=== PATIENT | male | born 1960 | race Caucasian/White ===

== ENCOUNTER 2019-08-17 08:12 | Outpatient (CLI) | payer BC, SELFPAY ==
--- NOTE | ~2019-08-17 | XR_ITS ---
XR shoulder LT min 2V 08/17/2019 08:28 Indication: Left shoulder pain Procedure: 4 views left shoulder Comparison: No prior studies for comparison. Findings: There is osteoarthritis of the acromioclavicular and glenohumeral joints. There are calcifi cations adjacent to the humeral head, likely calcific tendinopathy. No acute fracture or traumatic ma lalignment. No foreign bodies. Visualized lung parenchyma is unremarkable. Impression: 1: Moderate polyarticular osteoarthritis. Reviewed, dictated and finalized at location A. Impression: 1: Moderate polyarticular osteoarthritis.
== END 2019-08-17 08:13 | disposition home or self-care (01) ==
PROVIDERS: PCP Family Medicine; Visit Provider Physician Assistant
DX: S49.92XA Unspecified injury of left shoulder and upper arm, initial encounter (principal); M19.012 Primary osteoarthritis, left shoulder
CPT/HCPCS: 73030

== ENCOUNTER → 2019-08-20 14:31 | Outpatient (CLI) | payer BC, SELFPAY ==
--- NOTE | ~2019-08-20 | MR_ITS ---
EXAMINATION: MR shoulder LT wo con DATE: 08/20/2019 15:13 INDICATION: Left shoulder and upper arm injury presenting with pain and limited range of motion. TECHNIQUE: Magnetic resonance imaging (MRI) of the left shoulder was performed without intravenous co ntrast. Sequences included axial PD-weighted FS FSE, coronal oblique PD-weighted FS FSE, coronal obli que T2-weighted FS FSE, sagittal PD-weighted FS FSE, and sagittal T1-weighted SE. COMPARISON: None. FINDINGS: Coracoacromial arch: The acromion undersurface is flat in morphology (type I). Small anterior subacromial spur at the inse rtion of the normal coracoacromial ligament. Moderate acromioclavicular osteoarthritis inferiorly dir ected osteophytes. Rotator cuff: Complete full-thickness tear of the supraspinatus and infraspinatus tendons along the superior and mi ddle facet footplates. The tear margin is retracted 3 cm medial from the footplate. There is moderate tendinopathy extending up to 2 cm further medially from the tear margin. The teres minor tendon is n ormal. Moderate subscapularis tendinopathy without discrete tear. 10 x 4 x 5 mm globular region of lo w signal in the distal subscapularis tendon consistent with calcific tendinitis. Mild muscular edema in the distal supraspinatus and subscapularis muscle bellies without associated fatty atrophy consist ent with relatively recent rotator cuff tendon tears. Biceps tendon, glenoid labrum and glenohumeral cartilage: Mild tendinopathy and longitudinal split tearing of the intra-articular long head biceps tendon. Ryan phous increased signal of the posterior superior glenoid labrum consistent with degenerative tearing. Mild partial thickness cartilage thinning with smooth chondral surface at the cephalad third of the glenoid. Cartilage thinning with chondral surface irregularity but without degenerative subarticular changes at the apex of the humeral head. Fluid: Small glenohumeral joint effusion with proportional extension of fluid into the long head biceps tend on sheath and posterior, axillary and deep subscapular recesses.No loose osteochondral bodies. The gl enohumeral joint effusion also communicates through the full-thickness rotator cuff tear with a small amount of fluid in the subacromial/subdeltoid bursa. Bones: Normal marrow signal with no edema, fracture or pathologic marrow replacing process. IMPRESSION: 1. Large full-thickness tear involving the entire greater tuberosity insertion of the supraspinatus a nd infraspinatus tendons which is likely relatively recent given the absence of significant associate d muscular fatty atrophy. 2. Subscapularis calcific tendinitis with moderate tendinopathy but without discrete tear. 3. Mild tendinopathy and longitudinal split tearing of the intra-articular long head biceps tendon. 4. Mild glenohumeral osteoarthritis with posterior superior labral degeneration. 5. Moderate acromioclavicular osteoarthritis. Reviewed, dictated and finalized at location A. IMPRESSION: 1. Large full-thickness tear involving the entire greater tuberosity insertion of the supraspinatus and infraspinatus tendons which is likely relatively recen t given the absence of significant associated muscular fatty atrophy. 2. Subscapularis calcific tendinitis with moderate tendinopathy but without dis crete tear. 3. Mild tendinopathy and longitudinal split tearing of the intra-articular long head biceps tendon. 4. Mild glenohumeral osteoarthritis with posterior superior labral degeneration . 5. Moderate acromioclavicular osteoarthritis.
== END ==
PROVIDERS: PCP Family Medicine; Visit Provider Physician Assistant
DX: S46.012A Strain of muscle(s) and tendon(s) of the rotator cuff of left shoulder, initial encounter (principal); X58.XXXA Exposure to other specified factors, initial encounter; M19.012 Primary osteoarthritis, left shoulder
CPT/HCPCS: 73221

== ENCOUNTER 2019-09-18 13:03 | Outpatient (CLI) | payer BC, SELFPAY ==
--- NOTE | 2019-09-18 13:04 | ECG_ITS ---
Measurements Intervals [place] Rate: 58 P: 46 AK: 206 QRS: 46 QRSD: 144 T: 9 QT: 434 QTc: 429 Interpretive Statements SINUS BRADYCARDIA WITH FIRST DEGREE AV BLOCK RIGHT BUNDLE BRANCH BLOCK MINIMAL Q WAVES- INFERIOR LEADS ABNORMAL ECG Electronically Signed On 09-18-2019 14:31:12 CDT by Lamont Morrison D.O.
[2019-09-18 13:48] LABS: Anion Gap 10.8 mmol/L (7-16); Blood Urea Nitrogen 17 mg/dL (9-20); Calcium 9.4 mg/dL (8.4-10.2); Carbon Dioxide 30 mmol/L (22-30); Chloride 98 mmol/L (98-107); Estimated Glomerular Filt Rate > 60; Glucose 93 mg/dL (75-110); Potassium 3.8 mmol/L (3.4-5.0); Sodium 135 mmol/L (137-145)
== END 2019-09-18 13:04 | disposition home or self-care (01) ==
PROVIDERS: Anesthesiology; PCP Family Medicine; Visit Provider Orthopaedic Surgery
DX: I10 Essential (primary) hypertension (principal); R00.1 Bradycardia, unspecified; I44.0 Atrioventricular block, first degree
CPT/HCPCS: 36415; 80048; 80053; 80061; 93005

== ENCOUNTER 2019-09-18 13:13 | Outpatient (CLI) | payer BC, SELFPAY ==
[2019-09-18 13:47] LABS: Alanine Aminotransferase 20 U/L (4-50); Albumin Level 4.4 g/dL (3.5-5.1); Alkaline Phosphatase 114 U/L (38-126); Anion Gap 11.8 mmol/L (7-16); Aspartate Amino Transferase 25 U/L (17-59); Bilirubin,Total 0.7 mg/dL (0.2-1.3); Blood Urea Nitrogen 16 mg/dL (9-20); Calcium 9.4 mg/dL (8.4-10.2); Carbon Dioxide 30 mmol/L (22-30); Chloride 98 mmol/L (98-107); Cholesterol 223 mg/dL (0-200); Estimated Glomerular Filt Rate > 60; Glucose 94 mg/dL (75-110); HDL Direct 38 mg/dL; Potassium 3.8 mmol/L (3.4-5.0); Sodium 136 mmol/L (137-145); Triglycerides 210 mg/dL (<150)
[2019-09-18 13:58] LABS: LDL Cholesterol Direct 150 mg/dL
== END 2019-09-18 13:14 | disposition home or self-care (01) ==
LOC: ANHLAB 13:14
PROVIDERS: PCP Family Medicine; Visit Provider Family Medicine
DX: I10 Essential (primary) hypertension (principal); E78.1 Pure hyperglyceridemia; Z79.899 Other long term (current) drug therapy
CPT/HCPCS: 36415; 80053; 80061

== ENCOUNTER 2019-09-21 01:49 | Outpatient (CLI) | payer BC, SELFPAY ==
[2019-09-23 01:34] LABS: SARS-CoV-2 RNA PCR Negative
== END 2019-09-21 01:50 | disposition home or self-care (01) ==
LOC: ANHCOVIDDT 01:49
PROVIDERS: PCP Family Medicine; Visit Provider Orthopaedic Surgery
DX: Z01.812 Encounter for preprocedural laboratory examination (principal); Z11.59 Encounter for screening for other viral diseases
CPT/HCPCS: 87635; C9803; U0003

== ENCOUNTER 2019-09-24 00:46 | Day surgery (SDC) | payer BC, SELFPAY ==
[2019-09-10 16:50] VITALS: BMI 33.5
[2019-09-24] VITALS (8 sets, daily range): BP systolic 103–152; BP diastolic 57–84; PULSE 59–78; RESP 12–18; TEMP 36.2–36.5; O2SAT 97–100
[2019-09-24] MEDS: LACTATED RINGERS 1,000 ML 30 ML IV CONT ×2 (08:55→14:02)
[2019-09-24] MEDS: KETOROLAC 15 MG/ML VIAL (*BKC) IV PUSH (09:05)
[2019-09-24] MEDS: ACETAMINOPHEN 500 MG TABLET 1000 MG PO (09:05)
--- NOTE | 2019-09-24 09:22 | WPDANESEPPF ---
Anes - Initial Pre Proc Eval Procedure: Operation Date: 09/24/19 10:30 Proposed Procedures p Left Arthroscopic Rotator Cuff Repair With Subacromial Decompression - Truman Rousseau MD Date/Time: 09/24/19 09:22 Surgeon: Truman Rousseau MD Pre Op Diagnosis: left rotator cuff tear Patient Data Age: 59 Gender: M Height: 1.8 m Weight: 109.09 kg Allergies Allergy/AdvReac Type Severity Reaction Status Date / Time erythromycin base Allergy Unknown Nausea Verified 09/24/19 09:27 Home Medications Medication Instructions Recorded Confirmed Type naproxen 500 mg tablet 500 mg PO BID #180 tablet 05/30/19 08/21/19 Rx lisinopril 20 1 tablet PO DAILY #90 tablet 08/09/19 08/21/19 Rx mg-hydrochlorothiazide 25 mg tablet [id number]-[id number]-kodq-FA-vit K tablet PO 09/10/19 History [Adults Multivitamin] omega 8-rqa-vhb-fish oil [Fish Oil] cap PO 09/10/19 History Patient hx anesthesia problems: none Family hx anesthesia problems: none PMFSH Social History Social History Smoking status: Never smoker Smokeless tobacco user: chewing tobacco Second hand tobacco smoke exposure: Yes Smoking end date: 02/28/99 Alcohol intake: current Drinks per week: 10 Substance use: never Living arrangements: with family Spiritual care concerns: No Anes - Eval Final PreProcedure Day of Procedure 09/24/19 09:22 Patient weight: obese Heart: regular rate and rhythm Lungs: clear to auscultation and normal air movement Airway: Mallampati scale class II Neurological: alert and oriented Last oral intake: >/= 8 hours ASA classification: III Emergent: no Anesthetic plan: proceed Anesthesia type and monitoring: general ETT and standard monitoring Informed Consent: The patient's anesthetic plan and its attendant risks and benefits were discussed with the patient/family/POA. Questions were solicited and answers provided to the satisfaction of the patient/family/POA.
--- NOTE | 2019-09-24 09:22 | WPDANESPNB ---
Anes - Peripheral Nerve Block Date/Time: 09/24/19 09:22 I have discussed with the patient/family/POA the placement of a peripheral nerve block for post-operative pain management, including associated risks, benefits, complications, and side effects. Alternative methods of post-operative analgesia were detailed. Questions were solicited and answers provided to the satisfaction of the patient/family/POA. Time-Out: A pre-procedural Time-Out was completed immediately before starting the procedure and confirmed: Patient Identification, Site, Procedure, Patient Position and the Availability of Requisite Equipment. Clinical Indications: Acute post-operative pain management requested by the operative surgeon. Nerve Block Insertion Note Anes-nerve block: interscalene left Patient position: supine Skin prep: chlorhexidine Needle: 22 gauge, stimulating, insulated echogenic needle. Needle length: 50 mm Technique: ultrasound Injectate: bupivacaine 0.5% with epi 5 mcg/ml (30cc) Observations: tolerated well Complications: none Procedure start time:: 1015 Procedure end time:: 1018
--- NOTE | 2019-09-24 10:11 | WPDHPUPDATE1 ---
History and Physical Update Update Date/Time: 09/24/19 10:11 Correct side is LEFT. History and Physical has been reviewed, including an updated exam of the patient. There are NO changes in the patient's condition. Risks, benefits, and alternatives have been discussed and questions answered. Patient agrees to proceed with procedure.
[2019-09-24] MEDS: ceFAZolin 2 GM/D5W 50 ML 2 GM/50 ML BAG IVPB (10:30)
--- NOTE | 2019-09-24 14:24 | P.OP_ITS ---
Procedure Note - Detailed Date of procedure: 09/24/19 Pre-op diagnosis: left rotator cuff tear Post-op diagnosis: other ( 1. Left rotator cuff tear (massive) 2. Biceps tendinosis ) Procedure performed: 1. Arthrosocopic rotator cuff repair. 2. Arthroscopic subacromial decompression. 3. Arthroscopic biceps tenodesis. Description of procedure: Massive retracted tear. L-shaped. Rupture of the biceps tendon with partial attachment. The subscapularis was intact. External rotation was limited to 45? initially. Gentle manipulation released the shoulder prior to introduction of the arthroscopic instruments. The remaining capsule showed moderate capsulitis with mild contracture. The anterior capsule was released arthroscopically. A rotator interval slide was performed. Adhesions to the rotator cuff were released. A modest acromioplasty was performed to limit risk of future escape. Implants: Right medical piton anchor 2.8 mm diameter; ArthroTunneler device with ortho cord suture x3 and suture tape x 6. Anesthesia: GETA Surgeon: Truman Rousseau MD Estimated blood loss (mL): 20 Complications: None Condition: stable Disposition: PACU Findings: Operative detail: Preoperative antibiotics were given. An interscalene block was administered in the preoperative area. The patient was bought brought to the operating room. A general anesthetic was administered. The patient was carefully positioned in the beach chair position. The head and neck were carefully positioned. The non operative extremity was also carefully positioned. The shoulder was prepped and draped in the usual sterile fashion. Examination was performed. Standard posterior and anterior arthroscopic portals were established. Inflow achieved with the arthroscopic pump using saline and epinephrine. The glenohumeral joint was carefully inspected. The articular cartilage was healthy. The labrum was intact. The superior labrum and biceps were torn. Biceps was initially rel eased, followed by tenodesis at the inter tubercular groove. The rotator cuff was retracted to the level of the glenoid. There was some mobility from anterior to posterior of the supraspinatus. The tear pattern was carefully assessed. Repair was planned to go as medial as possible to the articular margin. The tissue quality was reasonable. Two tunnels were placed more posteriorly to provide for the posterior movement of the rotator cuff. A 3rd tunnel was placed central anterior. The 3 sutures from that tunnel were placed into the anterior portion of the supraspinatus. The posterior cuff was repaired with a rip stop technique. Prior to repair the footprint was very lightly decorticated. Very modest and cautious acromioplasty was performed due to the massive size of the tear. A complete bursectomy was performed. The sutures were passed in an antegrade fashion with the suture passing device. After securing the rotator cuff very nicely to the footprint, the biceps tenodesis was performed with a suture anchor at the intertubercular groove. Excess tendon proximally was excised. The arthroscopic instruments were removed. The wounds were closed with 4-0 Monocryl subcuticular suture and steri strips. There were no complications. A sling was applied and the patient brought to the recovery room.
== END 2019-09-24 15:25 | disposition home or self-care (01) ==
PROVIDERS: PCP Family Medicine; Visit Provider Orthopaedic Surgery
PROC: (CPT 29805; principal; 2019-09-24 10:30)
DX: M75.102 Unspecified rotator cuff tear or rupture of left shoulder, not specified as traumatic (principal); M75.22 Bicipital tendinitis, left shoulder; G89.18 Other acute postprocedural pain; E66.9 Obesity, unspecified; Z68.33 Body mass index [BMI] 33.0-33.9, adult; I10 Essential (primary) hypertension; E78.1 Pure hyperglyceridemia; Z87.891 Personal history of nicotine dependence
CPT/HCPCS: 29827; 29828; 29826; 64415; 87635; A4565; A9270; C1713; C9803; J0690; J1100; J1170; J1885; J2250; J2370; J2405; J2704; J3010; J7120; U0003

== ENCOUNTER 2020-06-11 10:56 | Outpatient (CLI) | payer BC, SELFPAY ==
--- NOTE | 2020-06-11 | ECG_ITS ---
Measurements Intervals [place] Rate: 67 P: 26 CT: 172 QRS: 55 QRSD: 142 T: 9 QT: 427 QTc: 451 Interpretive Statements SINUS RHYTHM RIGHT BUNDLE BRANCH BLOCK BASELINE ARTIFACT- II, III, AVF ABNORMAL ECG Electronically Signed On 06-11-2020 11:49:04 CDT by Lamont Morrison D.O.
[2020-06-11 11:32] LABS: Hematocrit 37.6 % (42.0-52.0); Hemoglobin 12.6 g/dL (14.0-18.0)
[2020-06-11 11:42] LABS: Albumin Level 4.5 g/dL (3.5-5.1); Estimated Glomerular Filt Rate > 60; Glucose 98 mg/dL (75-110)
[2020-06-11 11:57] LABS: Hemoglobin A1C 5.7 % (<5.7)
[2020-06-11 12:00] LABS: Urine Cotinine NEGATIVE
== END 2020-06-11 10:57 | disposition home or self-care (01) ==
PROVIDERS: PCP Family Medicine; Visit Provider Orthopaedic Surgery
DX: M16.11 Unilateral primary osteoarthritis, right hip (principal); Z01.818 Encounter for other preprocedural examination; I45.10 Unspecified right bundle-branch block
CPT/HCPCS: 80307; 82040; 82565; 82947; 83036; 85014; 85018; 93005

== ENCOUNTER 2020-07-01 11:55 | Outpatient (CLI) | payer BC, SELFPAY ==
[2020-07-01 12:52] LABS: Basophils Absolute Auto 0.1 K/mm3 (0.0-0.1); Basophils Percent Auto 0.5 % (0.2-1.2); Eosinophils Absolute Auto 0.4 K/mm3 (0-0.3); Eosinophils Percent Auto 3.8 % (0-4.4); Hematocrit 36.7 % (42.0-52.0); Hemoglobin 12.4 g/dL (14.0-18.0); Immature Granulocyte Absolute 0.03 K/mm3 (0.00-0.031); Immature Granulocyte Percent A 0.3 % (0-0.5); Lymphocytes Percent Auto 17.4 % (18.3-44.2); Mean Corpuscular HGB Conc 33.8 g/dl (32-36); Mean Corpuscular Hemoglobin 30.5 pg (26-34); Mean Corpuscular Volume 90.4 fl (80-100); Mean Platelet Volume 8.9 fl (7.4-10.4); Monocytes Absolute Auto 0.7 K/mm3 (0.1-0.6); Monocytes Percent Auto 8.1 % (2.6-8.5); Neutrophils Absolute Auto 6.4 K/mm3 (1.3-6.7); Neutrophils Percent Auto 69.9 % (45.5-73.1); Platelet Count Result 326 k/mm3 (150-375); Red Blood Count 4.06 M/mm3 (4.6-6.20); Red Cell Distribution Width 13.2 % (11.5-14.5); White Blood Count 9.2 K/mm3 (4.5-10.0)
== END 2020-07-01 11:56 | disposition home or self-care (01) ==
PROVIDERS: PCP Family Medicine; Visit Provider Orthopaedic Surgery
DX: Z01.812 Encounter for preprocedural laboratory examination (principal); M16.11 Unilateral primary osteoarthritis, right hip
CPT/HCPCS: 36415; 85025; 86850; 86900; 86901; 87081

== ENCOUNTER → 2020-07-06 02:17 | Outpatient (CLI) | payer BC, SELFPAY ==
[2020-07-06 19:19] LABS: SARS-CoV-2 RNA PCR Negative
== END ==
PROVIDERS: PCP Family Medicine; Visit Provider Orthopaedic Surgery
DX: Z01.812 Encounter for preprocedural laboratory examination (principal); Z20.822 Contact with and (suspected) exposure to COVID-19
CPT/HCPCS: C9803; U0003; U0005

== ENCOUNTER 2020-07-09 00:11 | Day surgery (SDC) | payer BC, SELFPAY ==
[2020-07-01 12:03] VITALS: BMI 34.4
[2020-07-01 12:35] VITALS: BP 131/67; PULSE 68; RESP 16; TEMP 36.9; O2SAT 100
[2020-07-09] VITALS (15 sets, daily range): BP systolic 105–140; BP diastolic 53–72; PULSE 74–100; RESP 12–20; TEMP 36.1–37.5; O2SAT 94–100
--- NOTE | ~2020-07-09 | XR_ITS ---
EXAMINATION: XR hip RT min 2V DATE: 07/09/2020 10:04 INDICATION: Total right hip arthroplasty. Postop. TECHNIQUE: 2 views of right hip were obtained. COMPARISON: Right hip radiographs 06/04/2020 FINDINGS: There is a total right hip arthroplasty in near-anatomic alignment. No fracture. There is g as in the soft tissues, consistent with recent surgery. IMPRESSION: 1. Total right hip arthroplasty in near-anatomic alignment. Reviewed, dictated and finalized at location B.
[2020-07-09] MEDS: LACTATED RINGERS 1,000 ML 30 ML IV CONT ×2 (06:30→09:51)
[2020-07-09] MEDS: ACETAMINOPHEN 500 MG TABLET 1000 MG PO (06:38)
[2020-07-09] MEDS: TRANEXAMIC ACID 1,000MG/ISO100 1,000 MG/100 ML BAG 200 MG IVPB (06:45)
--- NOTE | 2020-07-09 07:04 | WPDANESEPPF ---
Anes - Initial Pre Proc Eval Procedure: Operation Date: 07/09/20 07:30 Proposed Procedures p Right Total Hip Arthroplasty - Truman Rousseau MD Date/Time: 07/09/20 07:04 Surgeon: Truman Rousseau MD Pre Op Diagnosis: Primary OA, Right Hip Patient Data Age: 60 Gender: M Height: 1.78 m Weight: 106.9 kg Last Vital Signs Temp 36.5 C 07/09/20 06:50 Pulse 75 07/09/20 06:50 Resp 16 07/01/20 12:35 BP 120/60 07/09/20 06:50 Pulse Ox 100 07/09/20 06:50 Allergies Allergy/AdvReac Type Severity Reaction Status Date / Time erythromycin base Allergy Unknown Nausea Verified 07/09/20 06:28 Home Medications Medication Instructions Recorded Confirmed Type lisinopril 20 1 tablet PO DAILY #90 tablet 08/09/19 07/09/20 Rx mg-hydrochlorothiazide 25 mg tablet Adults Multivitamin 1 tablet PO DAILY 09/10/19 07/09/20 History omega 5-wks-ucm-fish oil [Fish Oil] 1 cap PO DAILY 09/10/19 07/09/20 History atorvastatin 10 mg tablet 10 mg PO DAILY #90 tablet 11/20/19 07/09/20 Rx naproxen 500 mg PO DAILY 07/01/20 07/09/20 History Patient hx anesthesia problems: none Family hx anesthesia problems: none [facility] Past Medical History Medical History Degeneration of cervical intervertebral disc Essential (primary) hypertension Gouty arthropathy, unspecified Impaired glucose tolerance (oral) Melanoma in situ of right upper extremity Mixed hyperlipidemia Obesity (BMI 35.0-39.9 without comorbidity) Pure hyperglyceridemia Rotator cuff tear, left Surgical History Surgical History History of total left hip arthroplasty (~02/12/13) Family History Family History Mother Patient's mother is , Onset Age: 76 Hypertension Family history of cardiovascular disease Father Acute myocardial infarction Family history of cardiovascular disease Family history of lung cancer Other Family history of osteoarthritis Social History Social History (Reviewed 06/05/20 @ 09:42 by Clary Aguirre [facility]) Smoking status: Never smoker Smokeless tobacco user: chewing tobacco Second hand tobacco smoke exposure: Yes Smoking end date: 02/28/99 Additional smoking assessment comments: DENIES ANY FORM OF TOBACCO USE Alcohol intake: current Drinks per week: 10 Substance use: never Living arrangements: with family Spiritual care concerns: No Anes - Eval Final PreProcedure Day of Procedure 07/09/20 07:04 Patient weight: obese Heart: regular rate and rhythm Lungs: clear to auscultation and normal air movement Airway: Mallampati scale class III Neurological: alert and oriented Last oral intake: >/= 8 hours ASA classification: III Emergent: no Anesthetic plan: proceed Anesthesia type and monitoring: general ETT and standard monitoring Informed Consent: The patient's anesthetic plan and its attendant risks and benefits were discussed with the patient/family/POA. Questions were solicited and answers provided to the satisfaction of the patient/family/POA.
--- NOTE | 2020-07-09 07:11 | WPDHPUPDATE1 ---
History and Physical Update Update Date/Time: 07/09/20 07:11 History and Physical has been reviewed, including an updated exam of the patient. There are NO changes in the patient's condition. Risks, benefits, and alternatives have been discussed and questions answered. Patient agrees to proceed with procedure.
--- NOTE | 2020-07-09 07:17 | PM.HPGS ---
History of Present Illness History of Present Illness Consent: Risks, benefits, and alternatives have been discussed and questions answered. Patient agrees to proceed with procedure. Chief complaint: Primary OA, Right Hip Narrative: Amilcar Chaparro is a 60 year old male complains of severe hip pain. No radiating pain. Currently rates pain at a 2 on a 1-10 pain scale. No injury. Characteristics of symptom or complaint: stabbing Aggravating or associated factors: stairs, sitting to standing Relieving factors: NSAIDs Pain severe at rest and at night. Worse with walking more than a block Injection: no Physical therapy: no NSAIDs: naproxen. Review of Systems: Joint pain, shoulder massive cuff tear left, s/p partial repair, still feels tight. [facility] Past Medical History Medical History Degeneration of cervical intervertebral disc Essential (primary) hypertension Gouty arthropathy, unspecified Impaired glucose tolerance (oral) Melanoma in situ of right upper extremity Mixed hyperlipidemia Obesity (BMI 35.0-39.9 without comorbidity) Pure hyperglyceridemia Rotator cuff tear, left Surgical History Surgical History History of total left hip arthroplasty (~02/12/13) Family History Family History Mother Patient's mother is , Onset Age: 76 Hypertension Family history of cardiovascular disease Father Acute myocardial infarction Family history of cardiovascular disease Family history of lung cancer Other Family history of osteoarthritis Social History Social History Smoking status: Never smoker Smokeless tobacco user: chewing tobacco Second hand tobacco smoke exposure: Yes Smoking end date: 02/28/99 Additional smoking assessment comments: DENIES ANY FORM OF TOBACCO USE Alcohol intake: current Drinks per week: 10 Substance use: never Living arrangements: with family Spiritual care concerns: No Meds Home Medications and Allergies Home Medications Medication Instructions Recorded Confirmed Type lisinopril 20 1 tablet PO DAILY #90 tablet 08/09/19 07/09/20 Rx mg-hydrochlorothiazide 25 mg tablet Adults Multivitamin 1 tablet PO DAILY 09/10/19 07/09/20 History omega 5-tgz-kbl-fish oil [Fish Oil] 1 cap PO DAILY 09/10/19 07/09/20 History atorvastatin 10 mg tablet 10 mg PO DAILY #90 tablet 11/20/19 07/09/20 Rx naproxen 500 mg PO DAILY 07/01/20 07/09/20 History Allergies Allergy/AdvReac Type Severity Reaction Status Date / Time erythromycin base Allergy Unknown Nausea Verified 07/09/20 06:28 Vital Signs Vital Signs - 24 hr 07/09/20 06:50 Temperature 36.5 C Pulse Rate 75 Blood Pressure 120/60 Pulse Oximetry 100 Exam Narrative: Exam Narrative: Appears healthy. No distress, moderately overweight. The hip shows no deformity. No tenderness. Painful range of motion. No instability. Good strength. No mass or swelling, No erythema or warmth Gait Antalgic, positive Trendelenburg Range of motion: Flexion 70, Internal rotation 5, External rotation 10 Stinchfield test positive, Pain with flexion and internal rotation Neurovascular status intact, radial pulse palpable and symmetric, light touch sensation intact No edema, no skin rash or lesions Diagnostics Advanced degenerative changes at the hip. Assessment and Plan Assessment and plan (1) Arthritis of right hip: Code(s): M16.11 - Unilateral primary osteoarthritis, right hip Status: Acute Assessment and Plan: Severe right hip pain with constant symptoms. Unable walk a block. Marked Trendelenburg limp. Radiographs show advanced disease with collapse of the femoral head and possible avascular necrosis. His pain is increasing and is now constant and at rest. We discussed the ris
[2020-07-09] MEDS: ceFAZolin 2 GM/D5W 50 ML 2 GM/50 ML BAG IVPB (07:27)
--- NOTE | 2020-07-09 09:48 | PM.PROC ---
Procedure Note - Detailed Date of procedure: 07/09/20 Pre-op diagnosis: Primary OA, Right Hip Post-op diagnosis: same Procedure performed: Total hip arthroplasty, right Description of procedure: Excellent bone quality. Leg lengthened slightly due to preop inequality. Implants: The Accolade II hip stem, 127 degree size 5 , was utilized with excellent press-fit. The 56 mm ADM acetabular component was impacted with excellent press-fit stability. The -2.7 , 28 mm Biolox ceramic femoral head was utilized. [facility] Surgeon: Truman Rousseau MD Sweatband Decorating Machine Operator: Maribel Cervantes PA-C Estimated blood loss (mL): 300 Drains: No Complications: None Condition: stable Findings: Physician quality control assistant, Maribel Cervantes PA-C, required for surgery; including patient positioning, draping, tissue retraction, maintaining instrument position, dislocation and reduction of the hip joint. Wound closure, and dressing placement. OPERATIVE DETAILS: The patient was given preoperative antibiotics. A general anesthetic was administered. The patient was carefully placed in the lateral decubitus position on the PEG board. The shoulders and hips were carefully positioned for component and leg length positioning reference. The hip was prepped and draped in the usual sterile fashion. A longitudinal incision was created over the posterior aspect of the greater trochanter. Careful dissection was brought down through the deep fascia with electrocautery. A minimally invasive optimized posterior approach to the hip was performed. The short external rotators and capsule were taken down in an L-shaped capsulotomy. The tissue was tagged for later repair using number 2 high strength suture. The femoral neck was measured and taken in situ. The femoral head was removed. The acetabulum was carefully exposed. The inferior capsule was released. The labrum was resected. The acetabulum was sequentially reamed to one over the intended cup size. The cup was impacted into position with excellent press-fit. Typical anatomic landmarks, including the bony contact points as well as the inferior transverse acetabular ligament were used to confirm cup positioning with preoperative templating. Attention was turned to the femur, which was carefully exposed. The hip was reamed and then broached sequentially. Excellent press-fit was obtained with the broach. The hip was trialed. Measurements were utilized, including the lesser trochanter as well as the center of the femoral head and the tip of the trochanter, and excellent assessment of the offset and leg lengths were confirmed. The real component was impacted into position. Trialing confirmed appropriate leg length and offset with soft tissue balancing as well apparent feel of the leg, both at the knee and the heel. Soft tissues were assessed using the the iliotibial band. Reduction of the posterior capsule and external rotators were also used as a secondary assessment. The hip was copiously irrigated with pulsatile lavage antibiotic solution periodically throughout the procedure. The real components were then assembled and reduced. The hip was stable throughout typical maneuvers, including extension, external rotation to 70 degrees, the position of sleep as well as flexion to 90 degrees with internal rotation past 45 degrees. The shake test confirmed stability without impingement. Osteophytes were removed as necessary. The short external rotators and capsule were repaired back to the posterior trochanter through drill holes. The deep fascia was repaired with running number 2 Quill suture, followed by 0 Stratafix suture and 2-0 Stratafix suture in the dermis. Steri-Strips were placed on the skin, followed by a sterile silver occlusive dressing. There were no complications. Meticulous hemostasis was maintained with the AquaMantys device. The patient was brought to the recovery room in stable condition. There were no complications.
[2020-07-09] MEDS: fentaNYL CITRATE INJ (*CRX) 100 MCG/2 ML VIAL 25 MCG IV PUSH ×6 (10:16→10:58)
--- NOTE | 2020-07-09 10:21 | SUR.PHASEI ---
CALLED DR SCHULZ OFFICE, SPOKE WITH PA ABOUT H AND H ORDER CLARIFICATION. SHE STATED TO NOT DRAW NOW AND SHE WOULD CLARIFY WITH DR SCHULZ. IF HE WANTED H AND H DRAW NOW, SHE WOULD CALL ME BACK.
[2020-07-09 10:46] LABS: Hematocrit 33.5 % (42.0-52.0); Hemoglobin 11.2 g/dL (14.0-18.0)
--- NOTE | 2020-07-09 11:29 | ADMGEN ---
This patient, Amilcar Chaparro, was admitted to Medical Room 254-01. Patient/family oriented to hospital policies and general routines including ID bracelet, bed and alarms, visiting hours, pain management, procedures, bathroom and other care routines, personal items, smoking policy, room service/diet, and visiting hours. Information on how to activate the Rapid Response Team has been discussed. Patient/Family are encouraged to report perceived risks to care and to ask questions if they do not understand what they are told or what they should do.
[2020-07-09] MEDS: KETOROLAC 15 MG/ML VIAL (*BKC) IV PUSH ×3 (11:36→23:05)
[2020-07-09] MEDS: SODIUM CHLORIDE 0.9% IV 1,000 ML 125 ML IV CONT ×2 (12:05→21:24)
[2020-07-09] MEDS: ASPIRIN 81 MG ENTERIC TABLET PO (17:16)
[2020-07-09] MEDS: DOCUSATE SODIUM 100 MG CAPSULE PO (17:17)
[2020-07-10 00:50] VITALS: BP 125/52; PULSE 88; RESP 20; TEMP 36.3; O2SAT 98
[2020-07-10 04:50] VITALS: BP 125/56; PULSE 87; RESP 20; TEMP 37; O2SAT 99
[2020-07-10 05:46] LABS: Basophils Percent Auto 0.3 % (0.2-1.2); Eosinophils Absolute Auto 0.1 K/mm3 (0-0.3); Eosinophils Percent Auto 0.4 % (0-4.4); Hematocrit 28.3 % (42.0-52.0); Hemoglobin 9.6 g/dL (14.0-18.0); Immature Granulocyte Absolute 0.04 K/mm3 (0.00-0.031); Immature Granulocyte Percent A 0.4 % (0-0.5); Lymphocytes Absolute Auto 0.91 K/mm3 (0.9-3.2); Lymphocytes Percent Auto 8.2 % (18.3-44.2); Mean Corpuscular HGB Conc 33.9 g/dl (32-36); Mean Corpuscular Hemoglobin 30.2 pg (26-34); Mean Platelet Volume 8.7 fl (7.4-10.4); Monocytes Absolute Auto 1.2 K/mm3 (0.1-0.6); Monocytes Percent Auto 10.8 % (2.6-8.5); Neutrophils Absolute Auto 8.9 K/mm3 (1.3-6.7); Neutrophils Percent Auto 79.9 % (45.5-73.1); Platelet Count Result 226 k/mm3 (150-375); Red Blood Count 3.18 M/mm3 (4.6-6.20); Red Cell Distribution Width 13.1 % (11.5-14.5); White Blood Count 11.2 K/mm3 (4.5-10.0)
[2020-07-10] MEDS: KETOROLAC 15 MG/ML VIAL (*BKC) IV PUSH (05:47)
[2020-07-10 06:04] LABS: Anion Gap 3 mmol/L (8-16); Blood Urea Nitrogen 12 mg/dL (9-20); Calcium 8.2 mg/dL (8.4-10.2); Carbon Dioxide 28 mmol/L (22-30); Chloride 105 mmol/L (98-107); Estimated CRCL calculation 103 ml/min; Estimated Glomerular Filt Rate > 60; Glucose 122 mg/dL (75-110); Potassium 3.3 mmol/L (3.4-5.0); Sodium 136 mmol/L (137-145)
[2020-07-10] MEDS: DOCUSATE SODIUM 100 MG CAPSULE PO (08:37)
[2020-07-10] MEDS: ATORVASTATIN 10 MG TABLET PO (08:37)
[2020-07-10] MEDS: ASPIRIN 81 MG ENTERIC TABLET PO (08:37)
[2020-07-10] MEDS: lisinopriL 20 MG TABLET PO (08:38)
[2020-07-10] MEDS: hydroCHLOROthiazide 25 MG TABLET PO (08:38)
[2020-07-10] MEDS: MULTIVITAMINS /C LUTEIN (CENTRUM SILVER) TABLET *BKC 1 TAB PO (08:38)
[2020-07-10 10:00] VITALS: BP 100/50; PULSE 77; RESP 16; TEMP 36.1; O2SAT 100
--- NOTE | 2020-07-10 10:28 | WPDANESPN ---
Anes - Prog Note Post-Op Date/Time: 07/10/20 10:28 Cardiovascular status: normal Respiratory status: normal Airway patency: baseline Mental status: baseline Post-Op hydration status: normal Vital Signs: Last Vital Signs Temp 97.0 F L 07/10/20 10:00 Pulse 77 07/10/20 10:00 Resp 16 07/10/20 10:00 BP 100/50 L 07/10/20 10:00 Pulse Ox 100 07/10/20 10:00 Pain Score (VAS): 0 I/O: Intake & Output 07/09/20 07/10/20 07/10/20 23:59 07:59 15:59 Intake Total 1440 1400 480 Balance 1440 1400 480 Laboratory Tests 07/10/20 05:34 07/10/20 05:33 07/09/20 07/10/20 07/10/20 10:41 05:33 05:34 WBC 11.2 H RBC 3.18 L Hgb 11.2 L 9.6 L Hct 33.5 L 28.3 L MCV 89.0 MCH 30.2 MCHC 33.9 RDW 13.1 Plt Count 226 MPV 8.7 Immature Gran % (Auto) 0.4 Neut % (Auto) 79.9 H Lymph % (Auto) 8.2 L [place] % (Auto) 10.8 H Eos % (Auto) 0.4 Baso % (Auto) 0.3 Lymph # (Auto) 0.91 [place] # (Auto) 1.2 H Eos # (Auto) 0.1 Baso # (Auto) 0.0 Abs Immat Gran (auto) 0.04 H Absolute Neuts (auto) 8.9 H Absolute Nucleated RBC 0.0 Nucleated RBC % 0.0 Sodium 136 L Potassium 3.3 L Chloride 105 Carbon Dioxide 28 Anion Gap 3 L BUN 12 Creatinine 0.80 Estim Creat Clear Calc 103 Estimated GFR > 60 Glucose 122 H Calcium 8.2 L Patient Feedback: Patient satisfied with anesthetic care.
--- NOTE | 2020-07-10 12:29 | PM.DS ---
DS: Admitting Diagnosis Admitting Diagnosis Admitting Diagnosis: OA Right hip DS: Discharge Diagnosis Discharge Diagnosis (1) Status post total hip replacement, right: Code(s): Z96.641 - Presence of right artificial hip joint Status: Acute Assessment and Plan: Postop day 1: Right total Hip arthroplasty. Patient tolerated procedure well. No complications. Pain manageable with pain medication. No numbness or tingling. We had a lengthy discussion regarding postoperative wound care, limitations, expectations, and exercises. Patient shows good understanding. He has had initial physical therapy and is tolerating it well. DVT prophylaxis: 81 mg baby aspirin b.i.d. for 14 days. Pain medication: Percocet. Patient has followup appointment with Dr. Rousseau in 3 weeks. DS: Summary Hospital Course Reason for hospitalization: Total hip arthroplasty Hospital Course: Patient tolerated procedure well. Has had initial PT/OT. Patient did have bleeding from incision site. Dressing removed, cleaned with Betadine, dressing reapplied. No drainage at the time of discharge. Status at Discharge Functional status at discharge: uses cane/walker Overall status at discharge: patient is progressing back to baseline Time Spent with Patient Time attestation: Total time spent providing and/or coordinating discharge services: Exam Narrative: Exam Narrative: Normal weight Male. Resting comfortably in chair. Wearing compression socks bilaterally. Dressing dry and intact with no drainage. Moderate swelling. No ecchymosis. No erythema. No hematoma. Range of motion limited due to pain. Calf nontender. Thigh nontender. Neurologic status intact. No varicosities. Distal pulses palpable. DS: Data Data Completed and Pending Labs on day of discharge: Labs from last 24 hours 07/10/20 07/10/20 05:34 05:33 WBC 11.2 H RBC 3.18 L Hgb 9.6 L Hct 28.3 L MCV 89.0 MCH 30.2 MCHC 33.9 RDW 13.1 Plt Count 226 MPV 8.7 Immature Gran % (Auto) 0.4 Neut % (Auto) 79.9 H Lymph % (Auto) 8.2 L [place] % (Auto) 10.8 H Eos % (Auto) 0.4 Baso % (Auto) 0.3 Lymph # (Auto) 0.91 [place] # (Auto) 1.2 H Eos # (Auto) 0.1 Baso # (Auto) 0.0 Abs Immat Gran (auto) 0.04 H Absolute Neuts (auto) 8.9 H Absolute Nucleated RBC 0.0 Nucleated RBC % 0.0 Sodium 136 L Potassium 3.3 L Chloride 105 Carbon Dioxide 28 Anion Gap 3 L BUN 12 Creatinine 0.80 Estim Creat Clear Calc 103 Estimated GFR > 60 Glucose 122 H Calcium 8.2 L Discharge Plan Discharge Patient Disposition: Home, Self-Care Discharge Instructions: See instruction sheet Patient Instructions: How to Stop Smoking (DC) Follow-up/Referrals: Maribel Cervantes PA [Physician [employer]] - Discharge Medications: New aspirin 81 mg tablet,delayed release (DR/EC) 81 mg PO BID 14 Days Qty: 28 RF: 0 oxycodone-acetaminophen 5-325 mg tablet 1 - 2 tablet PO Q4-6H MDD 6 PRN (Reason: pain) Qty: 30 RF: 0 Continued atorvastatin 10 mg tablet 10 mg PO DAILY Qty: 90 RF: 3 omega 1-gep-zhf-fish oil [Fish Oil] 1,200 (144-216) mg Capsule 1 cap PO DAILY RF: 0 Adults Multivitamin 18 mg iron-400 mcg-25 mcg Tablet 1 tablet PO DAILY RF: 0 naproxen 500 mg tablet 500 mg PO DAILY RF: 0 lisinopril-hydrochlorothiazide 20-25 mg tablet 1 tablet PO DAILY Qty: 90 RF: 3
--- NOTE | 2020-07-10 13:04 | PCPTNOTE ---
Attempted to see patient in PM for second PT treatment, however patient declined. Patient states that he is getting ready to discharge and is waiting for his ride. Mihaela Levine, HUMAN RESOURCE STATISTICIAN
== END 2020-07-10 13:27 | disposition home or self-care (01) ==
LOC: ANHSURGERY 06:10 → ANH2MED 11:08
PROVIDERS: PCP Family Medicine; Visit Provider Orthopaedic Surgery
PROC: (CPT 27130; principal; 2020-07-09 07:30)
DX: M16.11 Unilateral primary osteoarthritis, right hip (principal); I10 Essential (primary) hypertension; M47.812 Spondylosis without myelopathy or radiculopathy, cervical region; E78.5 Hyperlipidemia, unspecified; E78.1 Pure hyperglyceridemia; R73.02 Impaired glucose tolerance (oral); Z85.820 Personal history of malignant melanoma of skin; F17.290 Nicotine dependence, other tobacco product, uncomplicated; M10.9 Gout, unspecified; E66.9 Obesity, unspecified; Z68.33 Body mass index [BMI] 33.0-33.9, adult
CPT/HCPCS: 27130; 36415; 73502; 80048; 85014; 85018; 85025; 97110; 97161; 97165; 97535; A9270; C1776; J0131; J0171; J0330; J0690; J1170; J1885; J2250; J2270; J2405; J2704; J2710; J2795; J3010; J7030; J7120

== ENCOUNTER → 2021-01-12 11:18 | Outpatient (CLI) | payer BC, SELFPAY ==
--- NOTE | ~2021-01-12 | US_ITS ---
EXAMINATION: US carotid duplex BI DATE: 01/12/2021 11:40 INDICATION: Carotid bruit. TECHNIQUE: Grayscale, color Doppler, and pulsed Doppler images of the cervical carotid arteries were obtained. The degree of vessel stenosis is placed in one of the following categories: normal, <50%, 5 0-69%, >=70% but less than near-occlusion, near-occlusion, or total occlusion. Note that percent sten osis relative to normal distal artery lumen diameter is indirectly measured from velocity measurement s as described by Claude, et al. Radiology 2003; 229:340-346. COMPARISON: None. FINDINGS: RIGHT: The right common carotid artery (CCA) peak systolic velocity (PSV) is 81 cm/s. The right internal car otid artery (ICA) PSV is 79 cm/s. The right ICA end-diastolic velocity (EDV) is 26 cm/s. The right IC A/CCA PSV ratio is 1.1. Grayscale and color Doppler images yield an estimate of <50% diameter reducti on from plaque in the ICA. There is antegrade flow in the right vertebral artery. LEFT: The left CCA PSV is 106 cm/s. The left ICA PSV is 95 cm/s. The left ICA EDV is 35 cm/s. The left ICA/ CCA PSV ratio is 1.1. Grayscale and color Doppler images yield an estimate of <50% diameter reduction from plaque in the ICA. There is antegrade flow in the left vertebral artery. IMPRESSION: 1. <50% stenosis in the right internal carotid artery. 2. <50% stenosis in the left internal carotid artery. Reviewed, dictated and finalized at location A. [employer]
== END ==
PROVIDERS: PCP Family Medicine; Visit Provider Family Medicine
DX: R09.89 Other specified symptoms and signs involving the circulatory and respiratory systems (principal); I65.23 Occlusion and stenosis of bilateral carotid arteries
CPT/HCPCS: 93880

== ENCOUNTER 2021-10-14 00:49 | Day surgery (SDC) | payer BC, SELFPAY ==
[2021-10-04 13:44] VITALS: BMI 33.5
[2021-10-14 06:25] VITALS: BP 149/79; PULSE 68; RESP 18; TEMP 36.2; O2SAT 100
[2021-10-14] MEDS: LACTATED RINGERS 1,000 ML 150 ML IV CONT (06:40)
--- NOTE | 2021-10-14 07:21 | PM.IMHP ---
H&P: HPI History of Present Illness Date/Time: 10/14/21 07:21 Chief Complaint: Positive Cologuard test Narrative: this is a 61-year-old white male patient presents for screening colonoscopy. Patient's current weight appetite bowel movements are normal. He denies abdominal pain. Patient has had no bleeding. Family history is noncontributory. He presents today for screening colonoscopy. recent Cologuard test was positive. Review of Systems Review of Systems: Review of systems noncontributory. [facility] Past Medical History Medical History (Updated 10/14/21 @ 07:23 by Manjeet Reddy MD) Degeneration of cervical intervertebral disc Essential (primary) hypertension Gouty arthropathy, unspecified Impaired glucose tolerance (oral) Melanoma in situ of right upper extremity Mixed hyperlipidemia Obesity (BMI 35.0-39.9 without comorbidity) Pure hyperglyceridemia Rotator cuff tear, left Surgical History Surgical History History of total left hip arthroplasty (~02/12/13) History of total right hip arthroplasty Family History Family History Mother Patient's mother is , Onset Age: 76 Hypertension Family history of cardiovascular disease Father Acute myocardial infarction Family history of cardiovascular disease Family history of lung cancer Other Family history of osteoarthritis Social History Social History Smoking status: Never smoker Smokeless tobacco user: chewing tobacco Second hand tobacco smoke exposure: Yes Additional smoking assessment comments: DENIES ANY FORM OF TOBACCO USE Alcohol intake: current Drinks per week: 10 Substance use: never Living arrangements: with family Gender identity (if verbalized by the patient): Male Spiritual care concerns: No Meds Home Medications and Allergies Home Medications Medication Instructions Recorded Confirmed Type multivit with minerals-iron 18 1 tablet PO DAILY 09/10/19 10/04/21 History mg-folic ac 400 mcg-vit K 25 mcg tablet (Adults Multivitamin) omega 9-kub-oop-fish oil 1,200 mg 1 cap PO DAILY 09/10/19 10/04/21 History (144 mg-216 mg) capsule (Fish Oil) lisinopril 20 1 tablet PO DAILY #90 tabs 09/30/20 10/04/21 Rx mg-hydrochlorothiazide 25 mg tablet naproxen 500 mg tablet 500 mg PO DAILY #180 tabs 09/30/20 10/04/21 Rx atorvastatin 10 mg tablet 10 mg PO DAILY #90 tabs 12/07/20 10/04/21 Rx peg 3350-electrolytes 236 240 ml PO Q10M #4,000 mL 09/06/21 10/04/21 Rx gram-22.74 gram-6.74 gram-5.86 gram solution (Golytely) Allergies Allergy/AdvReac Type Severity Reaction Status Date / Time erythromycin base Allergy Unknown Nausea Verified 10/14/21 06:20 Vital Signs Vital Signs - 24 hr 10/14/21 06:25 Temperature 97.2 F L Pulse Rate 68 Respiratory Rate 18 Blood Pressure 149/79 H Pulse Oximetry 100 Oxygen Delivery Room Air Exam Narrative: Physical exam reveals patient to be alert. Vital signs stable. HEENT exam is unremarkable. Patient is anicteric. Lungs are clear to auscultation and percussion. Heart is without murmur or extra sounds. Abdomen bowel sounds are present soft nontender with no organomegaly. He is somewhat obese. Digital external rectal exam is normal. Assessment and Plan Assessment and plan (1) Obesity (BMI 35.0-39.9 without comorbidity): Code(s): E66.9 - Obesity, unspecified Status: Acute Assessment and Plan: Patient is obese. Weight loss with calorie restriction increase activity or encouraged. (2) Positive colorectal cancer screening using Cologuard test: Code(s): R19.5 - Other fecal abnormalities Status: Acute Assessment and Plan: patient presents for screening colonoscopy because of positive Cologuard test. Further recommendations will be gi
--- NOTE | 2021-10-14 07:27 | WPDANESEPPF ---
Anes - Initial Pre Proc Eval Procedure: Operation Date: 10/14/21 07:30 Proposed Procedures p Colonoscopy - Manjeet Reddy MD Date/Time: 10/14/21 07:27 Surgeon: Manjeet Reddy MD Pre Op Diagnosis: positive cologuard Patient Data Age: 61 Gender: M Height: 1.8 m Weight: 106.9 kg Last Vital Signs Temp 97.2 F L 10/14/21 06:25 Pulse 68 10/14/21 06:25 Resp 18 10/14/21 06:25 BP 149/79 H 10/14/21 06:25 Pulse Ox 100 10/14/21 06:25 O2 Del Method Room Air 10/14/21 06:25 Allergies Allergy/AdvReac Type Severity Reaction Status Date / Time erythromycin base Allergy Unknown Nausea Verified 10/14/21 06:20 Home Medications Medication Instructions Recorded Confirmed Type multivit with minerals-iron 18 1 tablet PO DAILY 09/10/19 10/04/21 History mg-folic ac 400 mcg-vit K 25 mcg tablet (Adults Multivitamin) omega 6-pmt-boc-fish oil 1,200 mg 1 cap PO DAILY 09/10/19 10/04/21 History (144 mg-216 mg) capsule (Fish Oil) lisinopril 20 1 tablet PO DAILY #90 tabs 09/30/20 10/04/21 Rx mg-hydrochlorothiazide 25 mg tablet naproxen 500 mg tablet 500 mg PO DAILY #180 tabs 09/30/20 10/04/21 Rx atorvastatin 10 mg tablet 10 mg PO DAILY #90 tabs 12/07/20 10/04/21 Rx peg 3350-electrolytes 236 240 ml PO Q10M #4,000 mL 09/06/21 10/04/21 Rx gram-22.74 gram-6.74 gram-5.86 gram solution (Golytely) Patient hx anesthesia problems: none Family hx anesthesia problems: none Results Review: All pre-operative results and documents have been reviewed as part of the pre-operative evaluation. [facility] Past Medical History Medical History (Updated 10/14/21 @ 07:23 by Manjeet Reddy MD) Degeneration of cervical intervertebral disc Essential (primary) hypertension Gouty arthropathy, unspecified Impaired glucose tolerance (oral) Melanoma in situ of right upper extremity Mixed hyperlipidemia Obesity (BMI 35.0-39.9 without comorbidity) Pure hyperglyceridemia Rotator cuff tear, left Surgical History Surgical History History of total left hip arthroplasty (~02/12/13) History of total right hip arthroplasty Family History Family History Mother Patient's mother is , Onset Age: 76 Hypertension Family history of cardiovascular disease Father Acute myocardial infarction Family history of cardiovascular disease Family history of lung cancer Other Family history of osteoarthritis Social History Social History Smoking status: Never smoker Smokeless tobacco user: chewing tobacco Second hand tobacco smoke exposure: Yes Additional smoking assessment comments: DENIES ANY FORM OF TOBACCO USE Alcohol intake: current Drinks per week: 10 Substance use: never Living arrangements: with family Gender identity (if verbalized by the patient): Male Spiritual care concerns: No Anes - Eval Final PreProcedure Day of Procedure 10/14/21 07:27 Patient weight: obese Heart: regular rate and rhythm Lungs: clear to auscultation Airway: Mallampati scale class II Neurological: alert and oriented Last oral intake: >/= 8 hours ASA classification: III Emergent: no Anesthetic plan: proceed Anesthesia type and monitoring: general GIVS and standard monitoring Results Review: All pre-operative results and documents have been reviewed as part of the pre-operative evaluation. Informed Consent: The patient's anesthetic plan and its attendant risks and benefits were discussed with the patient/family/POA. Questions were solicited and answers provided to the satisfaction of the patient/family/POA.
[2021-10-14] MEDS: SIMETHICONE ORAL SUSPENSION 20 MG/0.3 ML 30 ML BOTTLE 0.6 ML IRRIGATION (07:34)
[2021-10-14 07:45] VITALS: BP 117/53; PULSE 62; RESP 20; O2SAT 100
[2021-10-14 07:55] VITALS: BP 113/54; PULSE 62; RESP 14; O2SAT 100
[2021-10-14 08:05] VITALS: BP 120/54; PULSE 57; RESP 14; O2SAT 100
== END 2021-10-14 08:08 | disposition home or self-care (01) ==
PROVIDERS: PCP Family Medicine; Visit Provider Internal Medicine Gastroenterology
PROC: 0DJD8ZZ Inspection of Lower Intestinal Tract, Via Natural or Artificial Opening Endoscopic (ICD-10-PCS; CPT 45378; principal; 2021-10-14 07:30)
DX: R19.5 Other fecal abnormalities (principal); K51.40 Inflammatory polyps of colon without complications; K64.8 Other hemorrhoids; I10 Essential (primary) hypertension; Z86.006 Personal history of melanoma in-situ; E78.2 Mixed hyperlipidemia; R73.9 Hyperglycemia, unspecified; M47.812 Spondylosis without myelopathy or radiculopathy, cervical region; M10.9 Gout, unspecified; R73.02 Impaired glucose tolerance (oral); F17.229 Nicotine dependence, chewing tobacco, with unspecified nicotine-induced disorders; E66.9 Obesity, unspecified; Z68.32 Body mass index [BMI] 32.0-32.9, adult
CPT/HCPCS: 45385; 88305; J2704; J7120